=== PATIENT | male | born 1995 | race Caucasian/White ===

== ENCOUNTER 2018-12-13 13:01 | Emergency (ER) | payer OTHER, SELFPAY ==
[2018-12-13 13:02] VITALS: BP 140/69; PULSE 96; RESP 17; TEMP 37; O2SAT 96; BMI 24.4
[2018-12-13 13:52] VITALS: BP 123/67; BP 131/73; BP 137/79; PULSE 86; PULSE 88; PULSE 89
[2018-12-13] MEDS: 0.9% Normal Saline 1,000 ML 1000 ML IV (14:00)
[2018-12-13] MEDS: Meclizine HCl 25 MG Tablet PO (14:05)
[2018-12-13 14:18] LABS: Absolute Neutrophil Count 6.6 X10^3/uL (2.0-7.7); Basophil# 0.06 X10^3/uL; Basophil% 0.6 % (0-1); Eosinophil# 0.52 X10^3/uL; Eosinophils% 5.5 % (0-5); Hematocrit 37.2 % (40-54); Hemoglobin 12.8 g/dl (13.0-16.5); Lymphocyte % 12.6 % (19-41); Mean Corp Hgb Conc 34.4 g/gl (32-36); Mean Corpuscular Hgb 29.4 pg (27.0-32.0); Mean Corpuscular Volume 85.3 fL (80-94); Mean Platelet Vol. 9.8 fl (6.2-12.0); Monocyte# 1.03 X10^3/uL; Monocyte% 10.8 % (0-10); Neutrophil # 6.58 X10^3/uL (2.7-7.7); Neutrophil % 69.2 % (47-70); Platelet Count 276 K/mm3 (150-450); RBC Distribution Width CV 13.8 % (11.6-14.6); RBC Distribution Width SD 42.6 fl (35.1-43.9); Red Blood Count 4.36 M/mm3 (4.6-6.2); White Blood Count 9.5 K/mm3 (4.4-11.0)
[2018-12-13 14:20] LABS: Anion Gap 4 (5-15); BUN 7 mg/dL (7-18); BUN/Creat Ratio 10.4 RATIO (10-20); Calcium,Total 8.9 mg/dL (8.5-10.1); Chloride 102 mmol/L (98-107); Creatinine, Serum 0.68 mg/dL (0.70-1.30); EST Glomerular Filtration Rate 151 mL/min (>60); Est Glom Filt Rate - Afr Amer 183 mL/min (>60); Estimated Creatinine Clearance 176.87 ml/min; Glucose 123 mg/dL (74-106); Potassium 2.9 mmol/L (3.5-5.1); Sodium Level 139 mmol/L (136-145)
[2018-12-13 14:21] LABS: POSITIVE COUNT NO; POSITIVE DIFFERENTIAL NO; POSITIVE MORPHOLOGY NO
[2018-12-13 15:07] VITALS: BP 124/70; PULSE 83; RESP 17; O2SAT 97
--- NOTE | 2018-12-13 15:24 | ED.VISSUMM ---
- ER Visit Summary Date of Service: 12/13/18 Chief Complaint: Dizziness History of Present Illness: The patient is a 23 M who presents with dizziness that has been getting worse over the past week. Patient states he feels off balance. Patient states it is worse with ambulation. Patient states he has feelings of dry mouth. Patient denies any fevers or chills. Patient admits to some nausea and vomiting. Patient also admits to some mild abdominal pain. Patient denies any headaches. Patient denies any hearing or visual changes. Physical Examination: Vital signs are stable. Patient is afebrile. Patient is in no acute distress. Pupils are equal, round, and reactive to light bilaterally. Extraocular muscles are intact. There is some slight nystagmus with right lateral gaze. Oral mucosa is pink and moist. Neck is supple. Trachea is midline. There is no JVD noted. Heart was regular rate and rhythm. Lungs are clear and equal bilateral. Abdomen is soft. Bowel sounds are normal. There is no tenderness. There is no guarding noted. Skin is warm dry. Cranial nerves II through XII are intact. There are no focal motor or sensory deficits noted. The remaining physical exam is within normal limits. Test Results: CBC and basic metabolic profile were obtained. Potassium was low at 2.9. Emergency Department Course and Treatment: Patient was given a dose of meclizine here. Patient was also given a dose of oral potassium here. Patient felt better on reevaluation. Patient was instructed to drink plenty of fluids. Patient was instructed to follow-up with his primary care physician in 5-7 days. Patient understood and was agreeable with the plan. All questions were answered. Disposition: Discharge home Impression: 1. Dizziness 2. Hypokalemia This note was generated with [employer] dictation software. It may contain incorrect words, spelling, and punctuation that were not noted in review of the chart prior to signing ED Disposition - Plan for ED Patient: Disposition: Home or Assisted Living Diagnosis: Dizziness, Hypokalemia Instructions: ED Dizz[place] [facility] [place] Referrals: Monroe Soto, DO [Primary Care Provider] - 10-14 Days if not better
--- NOTE | 2018-12-13 15:28 | ED.DCSUM_ITS ---
- ER Visit Summary Date of Service: 12/13/18 Chief Complaint: Dizziness History of Present Illness: The patient is a 23 M who presents with dizziness that has been getting worse over the past week. Patient states he feels off balance. Patient states it is worse with ambulation. Patient states he has feelings of dry mouth. Patient denies any fevers or chills. Patient admits to some nausea and vomiting. Patient also admits to some mild abdominal pain. Patient denies any headaches. Patient denies any hearing or visual changes. Physical Examination: Vital signs are stable. Patient is afebrile. Patient is in no acute distress. Pupils are equal, round, and reactive to light bilaterally. Extraocular muscles are intact. There is some slight nystagmus with right lateral gaze. Oral mucosa is pink and moist. Neck is supple. Trachea is midline. There is no JVD noted. Heart was regular rate and rhythm. Lungs are clear and equal bilateral. Abdomen is soft. Bowel sounds are normal. There is no tenderness. There is no guarding noted. Skin is warm dry. Cranial nerves II through XII are intact. There are no focal motor or sensory deficits noted. The remaining physical exam is within normal limits. Test Results: CBC and basic metabolic profile were obtained. Potassium was low at 2.9. Emergency Department Course and Treatment: Patient was given a dose of meclizine here. Patient was also given a dose of oral potassium here. Patient felt better on reevaluation. Patient was instructed to drink plenty of fluids. Patient was instructed to follow-up with his primary care physician in 5-7 days. Patient understood and was agreeable with the plan. All questions were answered. Disposition: Discharge home Impression: 1. Dizziness 2. Hypokalemia This note was generated with [employer] dictation software. It may contain incorrect words, spelling, and punctuation that were not noted in review of the chart prior to signing ED Disposition - Plan for ED Patient: Disposition: Home or Assisted Living Diagnosis: Dizziness, Hypokalemia Instructions: ED Dizziness [facility] [place] Referrals: Monroe Soto, DO [Primary Care Provider] - 10-14 Days if not better
[2018-12-13 15:33] VITALS: BP 121/72; PULSE 80; RESP 18; O2SAT 97
== END 2018-12-13 15:36 | disposition home or self-care (01) ==
PROVIDERS: Emergency Provider Emergency Medicine; Family Provider Family Medicine; PCP Family Medicine
DX: R42 Dizziness and giddiness (principal); E87.6 Hypokalemia; M54.9 Dorsalgia, unspecified; G89.29 Other chronic pain; R11.2 Nausea with vomiting, unspecified; R10.9 Unspecified abdominal pain; F17.210 Nicotine dependence, cigarettes, uncomplicated
CPT/HCPCS: 80048; 85025; 96360; 99285; J7030